=== PATIENT | female | born 1955 | race Caucasian/White ===

== ENCOUNTER → 2021-04-09 11:26 | Outpatient (CLI) | payer MEDICARE, SELFPAY ==
--- NOTE | ~2021-04-09 | MR_ITS ---
EXAMINATION: MR lumbar spine wo con DATE: 04/09/2021 12:42 INDICATION: Lumbar radiculopathy. Chronic low back pain. TECHNIQUE: Magnetic resonance imaging (MRI) of the lumbar spine was performed without intravenous con trast. Sequences included sagittal T2-weighted FSE, sagittal T2-weighted FS FSE, sagittal T1-weighted FSE, and axial T2-weighted FSE. COMPARISON: None FINDINGS: There is 60 degrees levoscoliosis of thoracolumbar spine. There is 9 mm anterolisthesis of L5 on S1. There are changes of posterior fusion procedure from the thoracic spine to L5. There is sev erely decreased disc height at L5-S1 with endplate remodeling. There is chronic 2/5 loss of height of L5 vertebral body posteriorly. 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 The distal spinal cord signal int ensity is normal. The conus medullaris is at L1. The following disc levels are specifically discussed : L1-L2: The disc does not extend beyond the endplate margin. There is ankylosis of the facet joints. T here is no neural foraminal stenosis. There is no central canal stenosis. L2-L3: The disc does not extend beyond the endplate margin. There is ankylosis of the facet joints. T here is no neural foraminal stenosis. There is no central canal stenosis. L3-L4: The disc does not extend beyond the endplate margin. There is ankylosis of the facet joints. T here is no neural foraminal stenosis. There is no central canal stenosis. L4-L5: The disc does not extend beyond the endplate margin. There is ankylosis of the facet joints. T here is no neural foraminal stenosis. There is no central canal stenosis. L5-S1: The disc does not extend beyond the endplate margins. 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 There is mild bilateral neural foraminal stenosis. There is no central canal stenosis. IMPRESSION: 1. Severe spondylosis at L5-S1. 2. Severe thoracolumbar levoscoliosis. 3. Posterior fusion procedure from the thoracic spine to L5. Reviewed, dictated and finalized at location A.
== END ==
PROVIDERS: PCP Internal Medicine; Visit Provider Nurse Practitioner Family
DX: M54.5 Low back pain (principal); M54.16 Radiculopathy, lumbar region; M47.816 Spondylosis without myelopathy or radiculopathy, lumbar region; M41.85 Other forms of scoliosis, thoracolumbar region; Z98.1 Arthrodesis status
CPT/HCPCS: 72148

== ENCOUNTER 2022-07-10 12:31 | Emergency (ER) | payer MEDICARE, SELFPAY ==
[2022-07-10 12:55] VITALS: BP 121/78; PULSE 83; RESP 14; TEMP 36.7; O2SAT 99
[2022-07-10] MEDS: TETANUS,DIPHTHERIA,AC PERTUSSIS ADULT (0.5 ML) BOOSTRIX IM (14:41)
--- NOTE | 2022-07-10 16:15 | ED.WOUNDLAC ---
HPI - Wound/Laceration General Chief Complaint: Wound/Laceration Stated Complaint: left thumb laceration Time Seen by Provider: 07/10/22 14:58 Source: patient Mode of arrival: ambulatory Limitations: no limitations History of Present Illness HPI narrative: Patient is a 66-year-old female who presents to the ED with report of a wound to her left thumb. Patient reports she was cutting frozen strawberries yesterday when the knife slipped, cutting her thumb. It is an avulsion injury. She states she bandaged it at home and was able to control the bleeding. She comes in today for wound evaluation. States she has some bandage stuck in the wound. She denies any numbness, tingling. Full range of motion of thumb. Tetanus status unknown. Related Data Allergies Allergy/AdvReac Type Severity Reaction Status Date / Time cefazolin Allergy Mild makes skin Verified 07/10/22 14:29 feels like on fire sulfamethoxazole Allergy Mild resp Verified 07/10/22 14:29 distress/swelling trimethoprim Allergy Mild resp Verified 07/10/22 14:29 distress/swelling Penicillins Allergy Unknown Anaphylactic Verified 07/10/22 14:29 Shock Sulfa (Sulfonamide Allergy Unknown Anaphylactic Verified 07/10/22 14:29 Antibiotics) Shock CEPHALEXIN MONOHYDRATE Allergy Unknown Swelling Uncoded 07/10/22 14:29 of Lip/Tongue/Throat Review of Systems Review of Systems: CONSTITUTIONAL: Denies fever, chills, or sweats. SKIN: Reports skin avulsion to left thumb. NEUROLOGIC: Denies tingling, numbness, or weakness. All systems reviewed & are unremarkable except as noted in HPI and below PMFSH Past Medical History Medical History Diabetes mellitus HLD (hyperlipidemia) Neuropathy Surgical History Surgical History No pertinent past surgical history Family History Family History (Updated 02/27/13 @ 10:31 by DOCTOR UNKNOWN) Other Cerebrovascular accident Family history of alcoholism Family history of arthritis Family history of heart disease in male family member before age 55 Family history of mental disorder Family history of seizure disorder Hypertension Social History Social History Smoking status: Former smoker Alcohol intake: current Exam Narrative: GENERAL: Well appearing, well-nourished, non-toxic, in no acute distress. HEAD: Normocephalic, atraumatic. RESPIRATORY: Airway patent, respirations nonlabored. CARDIOVASCULAR: Regular rate and rhythm without murmurs, rubs, or gallops. Radial pulses 2+ and equal bilaterally. MUSCULOSKELETAL: Moves all extremities. Strength/ROM intact without gross deformities. Full ROM of L thumb. Sensation intact. SKIN: Warm, dry, normal color. No rashes. 1cm oval skin avulsion to finger pad of L thumb. No bleeding present. Some gauze like material matted down to wound. Distal sensation intact. NEURO: A&O X3. Speech clear. Cranial nerves II-XII grossly intact. Steady gait. No ataxic movements. PSYCHIATRIC: Appropriate mood and affect. Normal interaction. Course Vital Signs Vital signs: Vital Signs Temperature 98.0 F 07/10/22 12:55 Pulse Rate 83 07/10/22 12:55 Respiratory Rate 14 07/10/22 12:55 Blood Pressure 121/78 07/10/22 12:55 Pulse Oximetry 99 07/10/22 12:55 Temperature 98.0 F 07/10/22 12:55 Pulse Rate 83 07/10/22 12:55 Respiratory Rate 14 07/10/22 12:55 Blood Pressure 121/78 07/10/22 12:55 Pulse Oximetry 99 07/10/22 12:55 Procedures Nerve Block Nerve Block 1: Nerve block date: 07/10/22 Nerve block time: 17:00 Time out performed: Yes Local Anesthetic: lidocaine 1% Amount of anesthesia used (mL): 4 Side: left Nerve Blocks: digital (1st digit) Procedure Successful: Yes Patient Tolerated Pr
== END 2022-07-10 17:39 | disposition home or self-care (01) ==
PROVIDERS: Emergency Provider Emergency Medicine; PCP Internal Medicine
DX: S61.002A Unspecified open wound of left thumb without damage to nail, initial encounter (principal); Z23 Encounter for immunization; Z87.891 Personal history of nicotine dependence; W26.0XXA Contact with knife, initial encounter; Y93.G1 Activity, food preparation and clean up
CPT/HCPCS: 90471; 90715; 99282